=== PATIENT | male | born 1970 | race Caucasian/White ===

== ENCOUNTER 2023-04-26 08:17 | Outpatient (CLI) | payer BC, SELFPAY ==
--- OUTSIDE RECORDS SUMMARY | 2023-04-26 08:20 | XMS_ITS | Patient Health Record ---
Author Name Unknown Organization [facility] Address [address] [place] [address] [address] [place] [address] Care Team Providers Care Probation Supervisor Name Role Phone CAPRI ROMAN Unavailable [phone] REASON FOR REFERRAL No Information MEDICATIONS Medication SIG (Take, Route, Frequency, Duration) Notes Start Date End Date Status Pepcid (PF) 20 mg/2 mL intravenous solution 0 *Reorder from [facility] for eRx and Interaction Alerts* Active Multivitamin Adult Oral 0 A ctive SOCIAL HISTORY Sex Assigned At : Social History Observation Description Sex Assigned At Unknown PROBLEMS Problem Type ICD Code Onset Dates Problem Status W/U Status Risk SNOMED Code Notes Problem Obstructive sleep apnea (adult) (pediatric) (G47.33) 7 Active confirmed Obstructive sleep apnea syndrome (disorder) (77099982) Problem Macroglossia (Q38.2) 7 Active confirmed Macroglossia (84734680) Problem Abnormal findings on diagnostic imaging of skull and head, not elsewhere classified (R93.0) 7 Active confirmed Abnormal findings on diagnostic imaging of skull and head (447445679) Problem Encounter for screening for malignant neoplasm of oral cavity (Z12.81) 7 Active confirmed Screening for cancer (69196023) Problem Encounter for screening for malignant neoplasm of other sites (Z12.89) 7 Active confirmed Screening for cancer (00262305) PLAN OF TREATMENT No Information Insurance Providers Payer Name Payer Address Payer Phone Subscriber Number Group Number Insured Name Patient Relationship to Insured Coverage Start Date Coverage End Date [employer] [address] [address] [place] [address] [id number] Everton Willard Self - patient is the insured [employer] [address] [address] [place] [address] [id number] Everton Willard Self - patient is the insured 9 1
== END 2023-04-26 08:18 | disposition home or self-care (01) ==
PROVIDERS: PCP Family Medicine; Visit Provider Family Medicine
DX: Z00.00 Encounter for general adult medical examination without abnormal findings (principal); E66.9 Obesity, unspecified; E78.5 Hyperlipidemia, unspecified; Z12.5 Encounter for screening for malignant neoplasm of prostate; Z13.1 Encounter for screening for diabetes mellitus
CPT/HCPCS: 80053; 80061; 82306; 82607; 82728

== ENCOUNTER 2023-06-17 10:15 | Outpatient (RCR) | payer BC, SELFPAY | END 2023-09-24 14:29 | disposition home or self-care (01) | PROVIDERS: PCP Family Medicine; Visit Provider Family Medicine | DX: M79.671 Pain in right foot (principal); G89.29 Other chronic pain; M54.50 Low back pain, unspecified; M79.605 Pain in left leg; M25.512 Pain in left shoulder; Z74.09 Other reduced mobility; R53.1 Weakness; Z51.89 Encounter for other specified aftercare | CPT/HCPCS: 97110; 97112; 97140; 97161; 97162 ==